=== PATIENT | female | born 1945 | race Hispanic/Latino ===

== ENCOUNTER 2017-12-06 13:22 | Emergency (ER) | payer MEDICARE ==
[~2017-12-06] VITALS: Ht 152.4 cm; Wt 66.2 kg
[2017-12-06] MEDS ORDERED: TYLENOL WITH C1 EACH PO (14:06)
== END 2017-12-06 14:32 | disposition home or self-care (01) ==
LOC: ER 13:22
DX: G89.11 Acute pain due to trauma (principal); S40.011A Contusion of right shoulder, initial encounter; S40.021A Contusion of right upper arm, initial encounter
CPT/HCPCS: 99282

== ENCOUNTER → 2020-12-13 | Outpatient (CLI) | payer MEDICARE ==
[~2020-12-13] MED LIST: REGADENOSON 0.4 MG/5 ML SYR IV ONE; TYLENOL WITH C1 EACH PO
== END ==
LOC: NM 09:03
PROVIDERS: ATTEND Internal Medicine Interventional Cardiology
DX: I20.9 Angina pectoris, unspecified (principal)
CPT/HCPCS: 36415; 78452; 82948; 93017; 93306; A9502; J2785